=== PATIENT | female | born 1980 | race Caucasian/White ===

== ENCOUNTER 2021-08-21 13:45 | Outpatient (CLI) | payer OTHER, SELFPAY ==
[2021-08-21 15:47] LABS: Cholesterol* 246 mg/dL (90-199); Triglycerides* 215 mg/dL (40-149)
[2021-08-21 15:48] LABS: HDL Cholesterol* 76 mg/dL (>=50); LDL Cholesterol Calculated 127 mg/dL (<100)
[2021-08-22 06:35] LABS: Glucose* 83 mg/dL (60-115)
== END 2021-08-21 13:46 | disposition home or self-care (01) ==
PROVIDERS: PCP Family Medicine; Visit Provider Registered Nurse
DX: Z01.419 Encounter for gynecological examination (general) (routine) without abnormal findings (principal); Z13.6 Encounter for screening for cardiovascular disorders; Z13.1 Encounter for screening for diabetes mellitus; Z86.39 Personal history of other endocrine, nutritional and metabolic disease
CPT/HCPCS: 80061; 82947

== ENCOUNTER 2021-11-05 13:15 | Outpatient (CLI) | payer OTHER, SELFPAY ==
--- NOTE | 2021-11-05 13:40 | CRLHL7_ITS ---
For Patients: As a result of the Century Cures Act, medical imaging exams and procedure reports are released immediately into your electronic medical record. You may view this report before your referring provider. If you have questions, please contact your health care provider. BILATERAL SCREENING MAMMOGRAM WITH COMPUTER-AIDED DETECTION AND TOMOSYNTHESIS TECHNIQUE: CC and MLO views were obtained. These mammographic images have been obtained using full-field digital technique. These mammographic images were interpreted with the benefit of computer-aided detection. Breast Tomosynthesis was used in this interpretation. COMPARISON FILM: 03/09/20, 04/07/18. FINDINGS: There are scattered areas of fibroglandular density IMPRESSION: There is no radiographic evidence for malignancy. ASSESSMENT: BI-RADS Category 1: Negative RECOMMENDATION: Routine screening mammogram in 1 year. A lay language report of this examination will be provided to the patient. Hector Carlisle M.D. Diagnostic Radiologist [email or web address] CONCEPCION/Dictated by: Hector Carlisle MD @ 11/06/2021 9:07:00 AM (Electronically Signed)
== END 2021-11-05 13:16 | disposition home or self-care (01) ==
PROVIDERS: PCP Family Medicine; Visit Provider Registered Nurse
DX: Z12.31 Encounter for screening mammogram for malignant neoplasm of breast (principal)
CPT/HCPCS: 77063; 77067

== ENCOUNTER 2025-02-17 08:25 | Outpatient (CLI) | payer BC, SELFPAY | END 2025-02-17 08:26 | disposition home or self-care (01) | LOC: NFLDREF 02-20 11:42 | PROVIDERS: PCP Family Medicine; Referring Provider Family Medicine; Visit Provider Family Medicine | DX: Z00.00 Encounter for general adult medical examination without abnormal findings (principal); E78.5 Hyperlipidemia, unspecified; F40.10 Social phobia, unspecified; F41.1 Generalized anxiety disorder; Z13.9 Encounter for screening, unspecified | CPT/HCPCS: 80053; 80061 ==